=== PATIENT | female | born 1960 | race Two or more races ===

== ENCOUNTER 2024-08-29 08:59 | Outpatient (CLI) | payer BC ==
[2024-08-29 09:23] LABS: Hematocrit 40.6 % (36.0-46.0); Hemoglobin 13.2 g/dL (12.2-16.2); Mean Corpuscular Hemoglobin 25.8 pg (28.0-32.0); Mean Corpuscular Volume 79.5 fL (80.0-100.0); Nucleated Red Blood Cells % 0.2 %
[2024-08-29 10:21] LABS: Alanine Aminotransferase 29 U/L (7-40); Alkaline Phosphatase 54 U/L (46-116); Anion Gap 6 (5-15); BUN/Creatinine Ratio 13.3 (10.0-20.0); Blood Urea Nitrogen 19 mg/dL (9-23); Carbon Dioxide 23 mmol/L (20-31); Potassium 5.0 mmol/L (3.5-5.1); Sodium 138 mmol/L (136-145); Total Protein 7.1 g/dL (5.7-8.2); Urine Protein, UAD Negative (Negative)
[2024-08-29 10:22] LABS: Bilirubin, Total 0.4 mg/dL (0.2-1.0); Cholesterol 127 mg/dL (< 200); HDL Cholesterol 43 mg/dL (40-59)
[2024-08-29 10:26] LABS: Albumin 4.9 g/dL (3.2-4.8); Calcium 10.7 mg/dL (8.7-10.4); Chloride 109 mmol/L (98-107); Glucose 108 mg/dL (74-106); Triglycerides 151 mg/dL (< 150)
== END 2024-08-29 17:00 | disposition home or self-care (01) ==
LOC: LAB 08:59
PROVIDERS: ATTEND Family Medicine
DX: E11.9 Type 2 diabetes mellitus without complications (principal); R53.83 Other fatigue; G25.0 Essential tremor; Z00.00 Encounter for general adult medical examination without abnormal findings
CPT/HCPCS: 36415; 80053; 80061; 80178; 81001; 82306; 83036; 84443; 85025

== ENCOUNTER 2024-12-19 08:40 | Day surgery (SDC) | payer BC, MEDICARE ==
[2024-12-17 13:35] LABS: Hemoglobin 12.5 g/dL (12.2-16.2); Nucleated Red Blood Cells % 0.1 %
[2024-12-17 13:37] LABS: Hematocrit 38.8 % (36.0-46.0); Mean Corpuscular Hemoglobin 26.3 pg (28.0-32.0); Mean Corpuscular Volume 81.9 fL (80.0-100.0)
[2024-12-17 13:46] LABS: INR 0.98 (0.9-1.15); Partial Thromboplastin Time 25.6 SEC (24.5-34.5); Prothrombin Time 10.4 sec (9.3-11.8)
[2024-12-17 14:01] LABS: Alanine Aminotransferase 29 U/L (7-40); Albumin 4.7 g/dL (3.2-4.8); Alkaline Phosphatase 59 U/L (46-116); Anion Gap 8 (5-15); BUN/Creatinine Ratio 8.8 (10.0-20.0); Blood Urea Nitrogen 12 mg/dL (9-23); Calcium 9.6 mg/dL (8.7-10.4); Carbon Dioxide 25 mmol/L (20-31); Chloride 105 mmol/L (98-107); Glucose 86 mg/dL (74-106); Potassium 5.0 mmol/L (3.5-5.1); Sodium 138 mmol/L (136-145); Total Protein 7.5 g/dL (5.7-8.2)
[2024-12-17 14:02] LABS: Bilirubin, Total 0.6 mg/dL (0.2-1.0)
[2024-12-17 14:54] LABS: Urine Protein, UAD Negative (Negative)
[~2024-12-19] VITALS: Ht 154.9 cm; Wt 94.8 kg
[~2024-12-19 08:40] MED LIST: ATOR-507 PO; CIME-52 PO; CYCL-611 PO; GABA-339 PO; LISI2.5T47 PO; LITH300T5 PO; MONT5CHW12 PO; OMEG1CAP36 PO; PIO30T PO; PRED20TA2 PO; PRIM50TA27 PO; ROPI4TAB23 PO; SITA100T7 PO; TOPI50TA53 PO; TRAM50TA2 PO
[2024-12-19] MEDS ORDERED: METOCLOPRAMIDE HCL 5MG/ml INJ 2ml VIAL IV PRN (12:00)
[2024-12-19] MEDS ORDERED: MORPHINE SULFATE 4 MG/ML SYR/VIAL IV PRN (12:00)
[2024-12-19] MEDS ORDERED: MORPHINE SULFATE INJ 2 MG/ml SYRG IV PRN (12:00)
[2024-12-19] MEDS ORDERED: ACCU-CHEK COMFORT CURVE STRIP VI ONE (12:00)
[2024-12-19] MEDS ORDERED: HYDROmorphone HCL 2 MG/ML VL/or syr IV PRN ×2 (12:00)
[2024-12-19] MEDS ORDERED: KETOROLAC TROMETH 30 MG/ML 1ML VIAL IV ONE (12:00)
[2024-12-19] MEDS: ceFAZolin 2 GM/D5W50ml 50 ML IV ONE (12:39)
--- NOTE | 2024-12-19 12:42 | DVHOP2 ---
Operative Report - 2 Report Details Date: 12/19/24 Preop Diagnosis: 1. Right foot bunion 2. Right foot hammer toe 2nd 3. Right foot metatarsalgia 4. Left foot bunion 5. Left foot hammer toe 2nd 6. Left foot metatarsalgia 7. Bilateral foot pain Postop Diagnosis: Same as preop Surgeon: Niya Pittman MD Anesthesiologist: See anesthesia Anesthesia: Mac Implant: 0.62 k wire x 2 Consent: The patient was informed of the risks and benefits of the procedure. These include but are not limited to complications of anesthesia, postoperative infection, incomplete relief of symptoms, recurrence of symptoms, damage to blood vessels, nerves and tendons, deep venous thrombosis, pulmonary embolism and possible need for repeat surgery in the future. Complications: None Estimated Blood Loss: Minimal Fluids: See anesthesia Findings: Consistent with the diagnosis Indications for Surgery: Worsening foot pain Name of Procedure Performed 1. Right foot MIS bunion (69508) 2. Right foot 2nd parag osteotomy (86395) 3. Right second hammer toe repair (80226) 4. Right foot second flexor tenotomy (01175) 5. Left foot MIS bunion (48678) 6. Left foot 2nd parag osteotomy (33440) 7. Left second hammer toe repair (57783) 8. Left foot second flexor tenotomy (78073) Procedure Details Procedure Details: PRE-PROCEDURE INFORMATION: In the pre-op holding area, the extremity to be operated on was clearly marked and the patient verified correct laterality of the marking. The patient was transferred to the OR table and placed in a supine position. A timeout was performed in which identification of the correct patient, procedure, location, and materials was done. The right foot and leg were prepped and draped in normal sterile fashion. DESCRIPTION OF PROCEDURE: Attention was directed to the right 1st metatarsophalangeal joint where a stab incision was made at the neck of the 1st metatarsal. Care was taken to avoid damage the neurovascular and tendinous structures. An osteotomy was then made at the neck of the 1st metatarsal. The metatarsal head was then shifted into position aligning the sesamoid bones over the fragment. Using a 6 2 K-wire, the wire was then driven down the shaft of the 1st metatarsal to hold the head in place until the osteotomy has healed. Attention was directed to the right 2nd toe where hammertoes located. A small stab incision was made medial to the proximal phalanx. Using the MIS bur, an osteotomy was made across the proximal phalanx. This allowed for adequate correction of the hammertoe deformity. It was noted clinically and fluoroscopy topically that the contracture was no longer there. Attention was directed to the right 2nd metatarsal head where a stab incision was made. The incision was deepened through blunt and sharp dissection. Care was taken to avoid damage to neurovascular structures throughout dissection. Incision was carried to the level of the 2nd metatarsal head it was noted there was significant plantar flexion of the metatarsal head. Using an MIS bur, the an osteotomy was performed across the neck of the metatarsal head. The metatarsal head was then able to float. Attention was directed to the right 2nd toe where approximately 3 cc of 1% lidocaine was injected. Using a 18 gauge needle, the toe was extended and a sweeping motion was made on the FDL. It was noted that the contracture of the digit was then relieved after the flexor tendon was released. Attention was directed to the left 1st metatarsophalangeal joint where a stab incision was made at the neck of the 1st metatarsal. Care was taken to avoid damage the neurovascular and tendinous structures. An osteotomy was then made at the neck of the 1st metatarsal. The metatarsal head was then shifted into position aligning the sesamoid bones over the fragment. Using a 6 2 K-wire, the wire was then driven down the shaft of the 1st metatarsal to hold the head in place until the osteotomy has healed. Attention was directed to the left 2nd toe where hammertoes located. A small stab incision was made medial to the proximal phalanx. Using the MIS bur, an osteotomy was made across the proximal phalanx. This allowed for adequate correction of the hammertoe deformity. It was noted clinically and fluoroscopy topically that the contracture was no longer there. Attention was directed to the left 2nd metatarsal head where a stab incision was made. The incision was deepened through blunt and sharp dissection. Care was taken to avoid damage to neurovascular structures throughout dissection. Incision was carried to the level of the 2nd metatarsal head it was noted there was significant plantar flexion of the metatarsal head. Using an MIS bur, the an osteotomy was performed across the neck of the metatarsal head. The metatarsal head was then able to float. Attention was directed to the left 2nd toe where approximately 3 cc of 1% lidocaine was injected. Using a 18 gauge needle, the toe was extended and a sweeping motion was made on the FDL. It was noted that the contracture of the digit was then relieved after the flexor tendon was released. All surgical wounds were irrigated copiously with saline and closed in layers with the aforementioned suture material. A dry sterile dressing was placed on the surgical extremity. The patient was placed in a post op shoe POSTOPERATIVE INFORMATION: The patient tolerated the above noted procedure and anesthesia well and was transferred to the PACU with vital signs stable, and vascular status intact with capillary refill intact to all digits. Postoperative instructions reviewed in detail with the patient with written instructions provided. Patient will return to clinic in approximately 10-14 days for first postoperative visit. Patient has the number of the clinic and was instructed to call prior to that time should any problems, questions, or concerns arise. Condition Good Disposition Home Visit Coding Podiatry Date of Service if different f: Dec 19, 2024 Billing Provider: NIYA PITTMAN DPM Podiatry Common Visit Codes: PROCEDURE ONLY NIYA PITTMAN DPM Dec 19, 2024 12:42
[2024-12-19] MEDS ORDERED: MIDAZOLAM HCL 2MG/2ML 2ml VIAL (1mg/ml) ONE (12:47)
[2024-12-19] MEDS: LIDOCAINE 1% HCL (LOCAL ANESTH.) INJ 20ML MDV ONE ×2 (12:47)
[2024-12-19 13:11] VITALS: PULSE 57; RESP 16; TEMP 98.8; O2SAT 97
[2024-12-19 13:26] VITALS: O2SAT 100
[2024-12-19 13:56] VITALS: BP 119/65; PULSE 61; RESP 18
== END 2024-12-19 14:05 | disposition home or self-care (01) ==
LOC: SUR 08:40
PROVIDERS: ATTEND Podiatrist
DX: M20.41 Other hammer toe(s) (acquired), right foot (principal); M21.611 Bunion of right foot; M77.41 Metatarsalgia, right foot; M20.42 Other hammer toe(s) (acquired), left foot; M21.612 Bunion of left foot; M77.42 Metatarsalgia, left foot; K21.9 Gastro-esophageal reflux disease without esophagitis; I10 Essential (primary) hypertension; E11.9 Type 2 diabetes mellitus without complications; G47.30 Sleep apnea, unspecified; F41.1 Generalized anxiety disorder; Z79.899 Other long term (current) drug therapy; Z98.890 Other specified postprocedural states
CPT/HCPCS: 28010; 28306; 28308; 28899; 36415; 80053; 81001; 82962; 85025; 85610; 85730; J0690; J2003; J2250